=== PATIENT | female | born 1945 | race Caucasian/White ===

== ENCOUNTER 2018-12-31 14:11 | Outpatient (CLI) | payer OTHER | END 2018-12-31 14:30 | disposition home or self-care (01) | LOC: NUCLEAR 14:11 | DX: M81.0 Age-related osteoporosis without current pathological fracture (principal) ==

== ENCOUNTER 2019-08-26 08:12 | Outpatient (CLI) | payer OTHER | END 2019-08-26 08:15 | disposition home or self-care (01) | LOC: MAMO-SONO 08:12 | DX: Z12.31 Encounter for screening mammogram for malignant neoplasm of breast (principal); Z87.898 Personal history of other specified conditions; R22.9 Localized swelling, mass and lump, unspecified; N61.0 Mastitis without abscess ==

== ENCOUNTER 2021-10-15 10:38 | Outpatient (CLI) | payer OTHER | END 2021-10-15 11:46 | disposition home or self-care (01) | LOC: MAMO-SONO 10:38 | PROVIDERS: ATTEND Specialist | DX: N63.0 Unspecified lump in unspecified breast (principal); Z12.31 Encounter for screening mammogram for malignant neoplasm of breast ==

== ENCOUNTER 2021-11-08 10:39 | Outpatient (CLI) | payer OTHER | END 2021-11-08 10:40 | disposition home or self-care (01) | LOC: NUCLEAR 10:39 | PROVIDERS: ATTEND Specialist | DX: M89.9 Disorder of bone, unspecified (principal); Z13.820 Encounter for screening for osteoporosis ==